=== PATIENT | female | born 1980 | race Caucasian/White ===

== ENCOUNTER 2023-04-19 14:06 | Outpatient (REF) | payer OTHER, SELFPAY | END 2023-04-19 14:07 | disposition home or self-care (01) | LOC: HO.MDS 14:06 | PROVIDERS: PCP Internal Medicine; Visit Provider Psychiatry & Neurology Neurology | DX: G37.9 Demyelinating disease of central nervous system, unspecified (principal) | CPT/HCPCS: 96365; J1720; J2930 ==

== ENCOUNTER 2023-04-20 14:11 | Outpatient (REF) | payer OTHER, SELFPAY | END 2023-04-20 14:12 | disposition home or self-care (01) | LOC: HO.MDS 14:11 | PROVIDERS: Visit Provider Psychiatry & Neurology Neurology | DX: G37.9 Demyelinating disease of central nervous system, unspecified (principal) | CPT/HCPCS: 96365; J2930 ==

== ENCOUNTER 2023-04-21 14:26 | Outpatient (REF) | payer OTHER, SELFPAY | END 2023-04-21 14:27 | disposition home or self-care (01) | LOC: HO.MDS 14:26 | PROVIDERS: PCP Internal Medicine; Visit Provider Psychiatry & Neurology Neurology | DX: G37.9 Demyelinating disease of central nervous system, unspecified (principal) | CPT/HCPCS: 96365; J2930 ==